=== PATIENT | male | born 1975 | race Hispanic/Latino ===

== ENCOUNTER 2016-11-14 14:35 | Emergency (ER) | payer SELFPAY ==
[~2016-11-14] VITALS: Ht 172.7 cm; Wt 81.8 kg
[~2016-11-14 14:35] MED LIST: AMOXICILLIN500 MG PO; BACTRIM DS1 TAB PO; FOLIC ACID1 MG PO; LIBRIUM10 M1 PO; PROZAC10 MG PO; RISPERDAL2 MG PO; SERTRALINE50 MG PO
[2016-11-14 15:23] VITALS: BP 138/89
== END 2016-11-14 15:30 | disposition home or self-care (01) | DRG 914 ==
LOC: ED 14:35
DX: S41.142A Puncture wound with foreign body of left upper arm, initial encounter (principal); W25.XXXA Contact with sharp glass, initial encounter; W45.8XXA Other foreign body or object entering through skin, initial encounter

== ENCOUNTER 2021-01-08 19:58 | Emergency (ER) | payer SELFPAY ==
[~2021-01-08] VITALS: Ht 172.7 cm; Wt 90.0 kg
[~2021-01-08 19:58] MED LIST changes: +RISPERDAL0.5 MG PO; -RISPERDAL2 MG PO
[2021-01-08 20:41] LABS: URINE BILIRUBIN - DIPSTICK NEGATIVE (NEGATIVE); URINE BLOOD DIPSTICK NEGATIVE (NEGATIVE); URINE COLOR YELLOW; URINE GLUCOSE - DIPSTICK NEGATIVE (NEGATIVE); URINE KETONE NEGATIVE (NEGATIVE); URINE LEUK ESTERASE NEGATIVE (NEGATIVE); URINE PH 6.5 (4.5-8.0); URINE PROTEIN - DIPSTICK NEGATIVE (NEG-TRACE); URINE SPECIFIC GRAVITY <=1.005; URINE UROBILINOGEN - DIPSTICK 0.2 E.U./dL (0.2)
[2021-01-08 20:42] LABS: URINE NITRITE - DIPSTICK NEGATIVE (Negative)
[2021-01-08 20:49] LABS: ALBUMIN 4.7 g/dL (3.2-5.0); ALKALINE PHOSPHATASE 60 u/l (38-126); BILIRUBIN, TOTAL 1.2 mg/dL (0.0-1.4); BUN 4 mg/dL (9-20); BUN/CREATININE RATIO 8 (12-20 (CALC)); CARBON DIOXIDE 22 mmol/l (22-30); CHLORIDE 97 mmol/l (95-108); CREATININE 0.5 mg/dL (0.7-1.3); ETHYL ALCOHOL 41 mg/dl (0-30); GFR > 60 ML/MIN (>=60 (CALC)); GFR FOR AFR.AMER. > 60 ML/MIN (>=60 (CALC)); LIPASE 98 u/l (23-300); POTASSIUM 3.4 mmol/l (3.5-5.1); TOTAL PROTEIN 8.5 g/dL (6.3-8.2)
[2021-01-08 20:50] LABS: ANION GAP 17 (6-22 (CALC)); SGOT/AST 84 u/l (17-59); SODIUM 133 mmol/l (137-146)
[2021-01-08 20:55] LABS: HEMATOCRIT 37.3 % (39.0-50.0); HEMOGLOBIN 12.5 g/dl (14.0-18.0); IMMATURE GRANULOCYTES 0.2 % (0.0-5.0); MEAN CORPUSCULAR HGB 31.2 pG CALC (26.0-32.0); MEAN CORPUSCULAR HGB CONC 33.5 g/dL CAL (32.0-36.0); NEUT# 3.48 thou/uL (1.82-7.42); RED BLOOD COUNT 4.01 mill/uL (4.70-6.10); RED CELL DISTRI WIDTH 11.7 % (11.5-15.5)
[2021-01-08 21:19] LABS: INTERNATIONAL NORMALIZED RATIO 1.1 RATIO (0.7-1.3)
[2021-01-09 00:08] VITALS: BP 123/80
== END 2021-01-09 00:29 | disposition home or self-care (01) | DRG 897 ==
LOC: ED 19:58
PROVIDERS: Emergency Medicine
DX: F10.10 Alcohol abuse, uncomplicated (principal); F41.9 Anxiety disorder, unspecified; I10 Essential (primary) hypertension; F32.9 Major depressive disorder, single episode, unspecified

== ENCOUNTER 2021-07-04 12:19 | Emergency (ER) | payer SELFPAY ==
[~2021-07-04] VITALS: Ht 172.7 cm; Wt 85.2 kg
[2021-07-04] MEDS ORDERED: ATIVAN1 M1 PO (12:45)
[2021-07-04 13:03] VITALS: BP 145/71
== END 2021-07-04 13:15 | disposition home or self-care (01) | DRG 885 ==
LOC: ED 12:19
DX: F29 Unspecified psychosis not due to a substance or known physiological condition (principal); F32.A Depression, unspecified; F41.9 Anxiety disorder, unspecified